=== PATIENT | male | born 2005 | race Two or more races ===

== ENCOUNTER 2025-08-15 14:07 | Emergency (ER) | payer SELFPAY ==
[2025-08-15 14:15] VITALS: RESP 20; TEMP 98.6; BMI 25.5
[2025-08-15] MEDS ORDERED: ACETAMINOPHEN 325 MG TABLET (FP) ONE (15:46)
[2025-08-15] MEDS ORDERED: DIPHTH,PERTUSS(ACELL),TET 0.5 ML DISP.SYRIN IM ONE (15:48)
[2025-08-15] MEDS: DIPHTH,PERTUSS(ACELL),TET 0.5 ML DISP.SYRIN IM ONE (15:51)
[2025-08-15] MEDS: ACETAMINOPHEN 500 MG TABLET (FP) PO ONE (15:54)
[2025-08-15 17:22] VITALS: BP 118/91; PULSE 101
== END 2025-08-15 18:03 | disposition home or self-care (01) ==
LOC: JERFT 14:07
PROC: 0HQGXZZ Repair Left Hand Skin, External Approach (ICD-10-PCS; principal; 2025-08-15)
PROC: 3E0234Z Introduction of Serum, Toxoid and Vaccine into Muscle, Percutaneous Approach (ICD-10-PCS; 2025-08-15)
DX: S61.213A Laceration without foreign body of left middle finger without damage to nail, initial encounter (principal); S61.217A Laceration without foreign body of left little finger without damage to nail, initial encounter; Z23 Encounter for immunization; W26.8XXA Contact with other sharp object(s), not elsewhere classified, initial encounter
CPT/HCPCS: 73130-TC-LT-FY; 90715; 99284-25